=== PATIENT | female | born 2000 | race Caucasian/White ===

== ENCOUNTER 2021-02-03 09:04 | Emergency (ER) | payer BC, OTHER ==
[2021-02-03] MEDS ORDERED: Bacitracin Oint 1 GM U/D Packet TOP ONE (09:31)
--- NOTE | 2021-02-03 09:36 | EDM.PDOC ---
ED HPI GENERAL MEDICAL PROBLEM - General Chief Complaint: Bite:Animal, Insect Stated Complaint: [id number] DOG BITE Time Seen by Provider: 02/03/21 09:20 Source of Information: Reports: Patient History Limitations: Reports: No Limitations - History of Present Illness INITIAL COMMENTS - FREE TEXT/NARRATIVE: This 20 yo female patient reports to the ED with a dog bite to her right hand. The patient reports her dogs got into a fight today and bit her hand during the incident. The patient has a laceration between her thumb and index finger and between her ring and little finger. The patient reports 1 of the dogs is fully vaccinated, but the other is not at this time. Onset: Today Duration: Minutes: Location: Reports: Upper Extremity, Right Quality: Reports: Ache Severity: Moderate Improves with: Reports: Rest Worsens with: Reports: Movement Context: Reports: Other Associated Symptoms: Reports: No Other Symptoms Right Hand Pain Score (Numeric/FACES): 9 - Related Data Allergies Allergy/AdvReac Type Severity Reaction Status Date / Time No Known Allergies Allergy Verified 02/03/21 09:15 Home Meds: Home Meds . [No Known Home Meds] 02/03/21 [History] Past Medical History Respiratory History: Reports: Asthma Gastrointestinal History: Reports: Other (See Below) Other Gastrointestinal History: Lactose intolerant Social & Family History - Tobacco Use Tobacco Use Status *Q: Never Tobacco User Second Hand Smoke Exposure: No - Caffeine Use Caffeine Use: Reports: Coffee, Energy Drinks, Soda, Tea - Recreational Drug Use Recreational Drug Use: No ED ROS GENERAL - Review of Systems Review Of Systems: Comprehensive ROS is negative, except as noted in HPI. ED EXAM, ANIMAL BITE - Physical Exam Exam: See Below Exam Limited By: No Limitations General Appearance: Alert, WD/WN, Mild Distress Eye Exam: Bilateral Eye: EOMI, Normal Inspection, PERRL Ears: Normal External Exam, Normal Canal, Hearing Grossly Normal, Normal TMs Nose: Normal Inspection, Normal Mucosa, No Blood Throat/Mouth: Normal Inspection, Normal Lips, Normal Teeth, Normal Gums, Normal Oropharynx, Normal Voice, No Airway Compromise Head: Atraumatic, Normocephalic Neck: Normal Inspection, Supple, Non-Tender, Full Range of Motion Respiratory/Chest: No Respiratory Distress, Lungs Clear, Normal Breath Sounds, No Accessory Muscle Use, Chest Non-Tender Cardiovascular: Normal Peripheral Pulses, Regular Rate, Rhythm, No Edema, No Gal lop, No JVD, No Murmur, No Rub GI/Abdominal: Normal Bowel Sounds, Soft, Non-Tender, No Organomegaly, No Distention, No Abnormal Bruit, No Mass (Female) Exam: Deferred Rectal (Female) Exam: Deferred Back Exam: Normal Inspection, Full Range of Motion, NT Extremities: Arm Pain (right hand pain. Puncture wounds between her 1st and 2nd fingers and between 4th and 5th fingers with no profuse bleeding. ) Neurological: Alert, Oriented, CN II-XII Intact, Normal Cognition, Normal Gait, Normal Reflexes, No Motor/Sensory Deficits Psychiatric: Normal Affect, Normal Mood Skin Exam: Other (See above) Lymphatic: No Adenopathy Course - Vital Signs Last Recorded V/S: Last Vital Signs Temp 100.9 F H 02/03/21 09:15 Pulse 98 02/03/21 09:15 Resp 20 02/03/21 09:15 BP 129/85 02/03/21 09:33 Pulse Ox 97 02/03/21 09:15 - Orders/Labs/Meds Meds: Medications Discontinued Medications Generic Name Dose Route Start Last Admin Trade Name Freq PRN Reason Stop Dose Admin Bacitracin 1 dose 02/03/21 09:31 Bacitracin Oint 1 Gm U/D Packet TOP 02/03/21 09:32 ONETIME ONE Departure - Departure Time of Disposition: 09:32 Disposition: Home, Self-Care 01 Condition: Fair Clinical Impression: Dog bite of right hand Qualifiers: Encounter type: initial encounter Qualified Code(s): S61.451A - Open bite of right hand, initial encounter - Discharge Information *PRESCRIPTION DRUG MONITORING PROGRAM REVIEWED*: Not Applicable *COPY OF PRESCRIPTION DRUG MONITORING REPORT IN PATIENT JAMES: Not Applicable Instructions: Animal Bite, Adult, [id number] Forms: ED Department Discharge Care Plan Goals: The patient was advised of the examination results during the visit. The patients wound was dressed with an antibiotic ointment and dressed with a sterile dressing during the visit. The patient was discharged with a script for Augmentin (500/125) #20 to take 1 by mouth 2 times per day for 10 days. The patient was advised to quarantine her dog over the next week to watch for abnormal behavior. If the patient has any additional symptoms or concerns, the patient should either return to the emergency department or visit her primary care facility. Sepsis Event Note (ED) - Evaluation Sepsis Screening Result: No Definite Risk - Focused Exam Vital Signs: Vital Signs Temp Pulse Resp BP Pulse Ox 02/03/21 09:33 129/85 02/03/21 09:15 100.9 F H 98 20 152/98 H 97
== END 2021-02-03 09:46 | disposition home or self-care (01) ==
LOC: DL.ED 09:04
DX: S61.451A Open bite of right hand, initial encounter (principal); J45.909 Unspecified asthma, uncomplicated; W54.0XXA Bitten by dog, initial encounter
CPT/HCPCS: 99283

== ENCOUNTER 2021-02-04 18:34 | Emergency (ER) | payer BC ==
[2021-02-04] MEDS ORDERED: Acetaminophen 325 MG Tab PO ONE (19:13)
[2021-02-04] MEDS ORDERED: Sodium Chloride 0.9% 1,000 ML IV ONE (19:13)
[2021-02-04 19:31] LABS: ANION GAP 16.9 mEq/L (7-13); CHLORIDE,CL 101 mmol/L (98-107); SODIUM,NA 141 mmol/L (136-145)
--- NOTE | 2021-02-04 20:34 | EDM.PDOC ---
ED HPI GENERAL MEDICAL PROBLEM - General Chief Complaint: Wound Recheck Stated Complaint: DOG BITE GETTING WORSE Right Hand Pain Score (Numeric/FACES): 9 - Related Data Allergies Allergy/AdvReac Type Severity Reaction Status Date / Time cat dander Allergy Itching Verified 02/04/21 18:53 dog dander Allergy Itching Verified 02/04/21 18:53 Home Meds: Home Meds Ibuprofen 02/04/21 [History] Past Medical History Respiratory History: Reports: Asthma Gastrointestinal History: Reports: Other (See Below) Other Gastrointestinal History: Lactose intolerant Social & Family History - Caffeine Use Caffeine Use: Reports: Energy Drinks - Recreational Drug Use Recreational Drug Use: No Course - Vital Signs Last Recorded V/S: Last Vital Signs Temp 101.2 F H 02/04/21 18:57 Pulse 97 02/04/21 20:07 Resp 18 02/04/21 19:30 BP 111/75 02/04/21 20:07 Pulse Ox 99 02/04/21 20:07 - Orders/Labs/Meds Orders: Active Orders 24 hr Category Date Time Status Hand Comp Min 3V Rt [CR] Urgent Exams 02/04/21 20:19 Ordered Labs: Laboratory Tests 02/04/21 02/04/21 02/04/21 Range/Units 19:05 19:05 19:05 WBC 15.4 H (5.0-10.0) 10^3/uL RBC 5.13 (4.2-5.4) 10^6/uL Hgb 15.3 (12.0-16.0) g/dL Hct 44.1 (37.0-47.0) % MCV 86.0 (80-100) fL MCH 29.8 (27.0-34.0) pg MCHC 34.7 (33.0-35.0) g/dL Plt Count 314 (150-450) 10^3/uL Neut % (Auto) 77.4 H (42.2-75.2) % Lymph % (Auto) 11.4 L (20.5-50.1) % [place] % (Auto) 6.6 (2-8) % Eos % (Auto) 4.4 H (1.0-3.0) % Baso % (Auto) 0.2 (0.0-1.0) % Sodium 141 (136-145) mmol/L Potassium 3.9 (3.5-5.1) mmol/L Chloride 101 (98-107) mmol/L Carbon Dioxide 27 (21-32) mmol/L Anion Gap 16.9 H (7-13) mEq/L BUN 11 (7-18) mg/dL Creatinine 0.82 (0.55-1.02) mg/dL Est Cr Clr Drug Dosing 95.29 mL/min Estimated GFR (MDRD) > 60 BUN/Creatinine Ratio 13.4 (No establ ref range) Glucose 103 H (70-99) mg/dL Lactic Acid 0.8 (0.4-2.0) mmol/L Calcium 9.3 (8.5-10.1) mg/dL Total Bilirubin 0.5 (0.2-1.0) mg/dL AST 21 (15-37) U/L ALT 26 (14-59) U/L Alkaline Phosphatase 99 (46-116) U/L Total Protein 8.7 H (6.4-8.2) g/dL Albumin 4.6 (3.4-5.0) g/dL Globulin 4.1 Albumin/Globulin Ratio 1.1 HCG, Qual Negative SARS-CoV-2 RNA (LIBBY) (NEGATIVE) 02/04/21 Range/Units 19:12 WBC (5.0-10.0) 10^3/uL RBC (4.2-5.4) 10^6/uL Hgb (12.0-16.0) g/dL Hct (37.0-47.0) % MCV (80-100) fL MCH (27.0-34.0) pg MCHC (33.0-35.0) g/dL Plt Count (150-450) 10^3/uL Neut % (Auto) (42.2-75.2) % Lymph % (Auto) (20.5-50.1) % [place] % (Auto) (2-8) % Eos % (Auto) (1.0-3.0) % Baso % (Auto) (0.0-1.0) % Sodium (136-145) mmol/L Potassium (3.5-5.1) mmol/L Chloride (98-107) mmol/L Carbon Dioxide (21-32) mmol/L Anion Gap (7-13) mEq/L BUN (7-18) mg/dL Creatinine (0.55-1.02) mg/dL Est Cr Clr Drug Dosing mL/min Estimated GFR (MDRD) BUN/Creatinine Ratio (No establ ref range) Glucose (70-99) mg/dL Lactic Acid (0.4-2.0) mmol/L Calcium (8.5-10.1) mg/dL Total Bilirubin (0.2-1.0) mg/dL AST (15-37) U/L ALT (14-59) U/L Alkaline Phosphatase (46-116) U/L Total Protein (6.4-8.2) g/dL Albumin (3.4-5.0) g/dL Globulin Albumin/Globulin Ratio HCG, Qual SARS-CoV-2 RNA (LIBBY) Negative (NEGATIVE) Meds: Medications Discontinued Medications Generic Name Dose Route Start Last Admin Trade Name Freq PRN Reason Stop Dose Admin Acetaminophen 650 mg 02/04/21 19:13 02/04/21 19:21 Acetaminophen 325 Mg Tab PO 02/04/21 19:14 650 mg NOW ONE Administration Sodium Chloride 1,000 mls @ 999 mls/hr 02/04/21 19:13 02/04/21 19:23 Normal Saline IV 02/04/21 20:13 999 mls/hr .BOLUS ONE Administration Departure - Discharge Information Sepsis Event Note (ED) - Focused Exam Vital Signs: Vital Signs Temp Pulse Resp BP Pulse Ox 02/04/21 20:07 97 111/75 99 02/04/21 19:45 102 H 112/78 97 02/04/21 19:30 108 H 18 129/87 97 02/04/21 19:15 110 H 18 111/84 98 02/04/21 18:57 101.2 F H 118 H 20 137/85 97
--- NOTE | 2021-02-04 20:41 | EDM.PDOC ---
ED HPI GENERAL MEDICAL PROBLEM - General Chief Complaint: Wound Recheck Stated Complaint: DOG BITE GETTING WORSE Time Seen by Provider: 02/04/21 19:45 Source of Information: Reports: Patient History Limitations: Reports: No Limitations - History of Present Illness INITIAL COMMENTS - FREE TEXT/NARRATIVE: ED with c/o dog bite to right hand yesterday. Seen in ED started on antibiotic today, has had one dose Augmentin. has had hand wrapped today. Photo of hand this am compared to tonight increased redness and swelling. Pain worse with movement, fever tonight, also sore throat for one week getting better, some sinus congestion Location: Reports: Upper Extremity, Right Quality: Reports: Ache, Burning Severity: Moderate Worsens with: Reports: Movement Right Hand Pain Score (Numeric/FACES): 9 - Related Data Allergies Allergy/AdvReac Type Severity Reaction Status Date / Time cat dander Allergy Itching Verified 02/04/21 18:53 dog dander Allergy Itching Verified 02/04/21 18:53 Home Meds: Home Meds Ibuprofen 02/04/21 [History] Past Medical History Respiratory History: Reports: Asthma Gastrointestinal History: Reports: Other (See Below) Other Gastrointestinal History: Lactose intolerant Social & Family History - Caffeine Use Caffeine Use: Reports: Energy Drinks - Recreational Drug Use Recreational Drug Use: No ED ROS GENERAL - Review of Systems Review Of Systems: Comprehensive ROS is negative, except as noted in HPI. ED EXAM, SKIN/RASH Exam: See Below Exam Limited By: No Limitations General Appearance: Alert, Mild Distress Ears: Normal External Exam, Hearing Grossly Normal Nose: Normal Inspection Throat/Mouth: Normal Inspection Head: Atraumatic, Normocephalic Neck: Normal Inspection Respiratory/Chest: No Respiratory Distress, Normal Breath Sounds Cardiovascular: Normal Peripheral Pulses, Tachycardia GI/Abdominal: Soft, Non-Tender Back Exam: Full Range of Motion Extremities: Limited Range of Motion, Other (swelling right hand greater distal 4th and 5th metacarpal puncture wounds sweb between thumb and index, dime size redness, pucnture between web 4th and 5th fingers dorsal mild swelling fingers moderate seling distal hand. ) Course - Vital Signs Last Recorded V/S: Last Vital Signs Temp 99.1 F 02/04/21 21:35 Pulse 90 02/04/21 21:35 Resp 14 02/04/21 21:35 BP 106/85 02/04/21 21:35 Pulse Ox 97 02/04/21 21:35 - Orders/Labs/Meds Labs: Laboratory Tests 02/04/21 02/04/21 02/04/21 Range/Units 19:05 19:05 19:05 WBC 15.4 H (5.0-10.0) 10^3/uL RBC 5.13 (4.2-5.4) 10^6/uL Hgb 15.3 (12.0-16.0) g/dL Hct 44.1 (37.0-47.0) % MCV 86.0 (80-100) fL MCH 29.8 (27.0-34.0) pg MCHC 34.7 (33.0-35.0) g/dL Plt Count 314 (150-450) 10^3/uL Neut % (Auto) 77.4 H (42.2-75.2) % Lymph % (Auto) 11.4 L (20.5-50.1) % [place] % (Auto) 6.6 (2-8) % Eos % (Auto) 4.4 H (1.0-3.0) % Baso % (Auto) 0.2 (0.0-1.0) % Sodium 141 (136-145) mmol/L Potassium 3.9 (3.5-5.1) mmol/L Chloride 101 (98-107) mmol/L Carbon Dioxide 27 (21-32) mmol/L Anion Gap 16.9 H (7-13) mEq/L BUN 11 (7-18) mg/dL Creatinine 0.82 (0.55-1.02) mg/dL Est Cr Clr Drug Dosing 95.29 mL/min Estimated GFR (MDRD) > 60 BUN/Creatinine Ratio 13.4 (No establ ref range) Glucose 103 H (70-99) mg/dL Lactic Acid 0.8 (0.4-2.0) mmol/L Calcium 9.3 (8.5-10.1) mg/dL Total Bilirubin 0.5 (0.2-1.0) mg/dL AST 21 (15-37) U/L ALT 26 (14-59) U/L Alkaline Phosphatase 99 (46-116) U/L Total Protein 8.7 H (6.4-8.2) g/dL Albumin 4.6 (3.4-5.0) g/dL Globulin 4.1 Albumin/Globulin Ratio 1.1 HCG, Qual Negative SARS-CoV-2 RNA (LIBBY) (NEGATIVE) 02/04/21 Range/Units 19:12 WBC (5.0-10.0) 10^3/uL RBC (4.2-5.4) 10^6/uL Hgb (12.0-16.0) g/dL Hct (37.0-47.0) % MCV (80-100) fL MCH (27.0-34.0) pg MCHC (33.0-35.0) g/dL Plt Count (150-450) 10^3/uL Neut % (Auto) (42.2-75.2) % Lymph % (Auto) (20.5-50.1) % [place] % (Auto) (2-8) % Eos % (Auto) (1.0-3.0) % Baso % (Auto) (0.0-1.0) % Sodium (136-145) mmol/L Potassium (3.5-5.1) mmol/L Chloride (98-107) mmol/L Carbon Dioxide (21-32) mmol/L Anion Gap (7-13) mEq/L BUN (7-18) mg/dL Creatinine (0.55-1.02) mg/dL Est Cr Clr Drug Dosing mL/min Estimated GFR (MDRD) BUN/Creatinine Ratio (No establ ref range) Glucose (70-99) mg/dL Lactic Acid (0.4-2.0) mmol/L Calcium (8.5-10.1) mg/dL Total Bilirubin (0.2-1.0) mg/dL AST (15-37) U/L ALT (14-59) U/L Alkaline Phosphatase (46-116) U/L Total Protein (6.4-8.2) g/dL Albumin (3.4-5.0) g/dL Globulin Albumin/Globulin Ratio HCG, Qual SARS-CoV-2 RNA (LIBBY) Negative (NEGATIVE) Meds: Medications Discontinued Medications Generic Name Dose Route Start Last Admin Trade Name Freq PRN Reason Stop Dose Admin Acetaminophen 650 mg 02/04/21 19:13 02/04/21 19:21 Acetaminophen 325 Mg Tab PO 02/04/21 19:14 650 mg NOW ONE Administration Bacitracin 1 dose 02/04/21 20:50 Bacitracin Oint 1 Gm U/D Packet TOP 02/04/21 20:51 ONETIME ONE Sodium Chloride 1,000 mls @ 999 mls/hr 02/04/21 19:13 02/04/21 19:23 Normal Saline IV 02/04/21 20:13 999 mls/hr .BOLUS ONE Administration Gentamicin Sulfate 120 mg/ 103 mls @ 200 mls/hr 02/04/21 20:22 02/04/21 20:39 Sodium Chloride IV 02/04/21 20:54 200 mls/hr ONETIME ONE Administration Ketorolac Tromethamine 30 mg 02/04/21 20:50 02/04/21 20:58 Ketorolac 30 Mg/Ml Sdv IVPUSH 02/04/21 20:51 30 mg ONETIME ONE Administration Departure - Departure Time of Disposition: 21:13 Disposition: Home, Self-Care 01 Condition: Good Clinical Impression: Cellulitis Qualifiers: Site of cellulitis: extremity Site of cellulitis of extremity: upper extremity Laterality: right Qualified Code(s): L03.113 - Cellulitis of right upper limb Dog bite of right hand Qualifiers: Encounter type: initial encounter Qualified Code(s): S61.451A - Open bite of right hand, initial encounter - Discharge Information *PRESCRIPTION DRUG MONITORING PROGRAM REVIEWED*: No *COPY OF PRESCRIPTION DRUG MONITORING REPORT IN PATIENT JAMES: No Instructions: Animal Bite, Adult, [id number], Cellulitis, Adult, [id number] Referrals: PCP,None [Primary Care Provider] - Forms: ED Department Discharge Additional Instructions: elevate, cover wounds with light dressing alternate tylenol 650mg and ibuprofen 600mg every 4 hours as needed for fever/discomfort continue augmentin recheck wound in clinic Tuesday, Sooner if increased pain and swelling and redness of hand extending beyond gauri in am.
[2021-02-04] MEDS ORDERED: Ketorolac 30 MG/ML SDV IVPUSH ONE (20:50)
[2021-02-04] MEDS ORDERED: Bacitracin Oint 1 GM U/D Packet TOP ONE (20:50)
--- NOTE | 2021-02-04 21:23 | CR ---
PROCEDURE INFORMATION: Exam: XR Right Hand Exam date and time: 02/04/2021 8:23 PM Age: 20 years old Clinical indication: Injury or trauma; Other: Dog bite; Hand; Right; Additional info: Dog bite, swelling TECHNIQUE: Imaging protocol: XR Right hand. Views: 3 or more views. COMPARISON: No relevant prior studies available. FINDINGS: Bones/joints: There is normal osseous mineralization. There are no suspicious lytic or osteosclerotic lesions. Normal alignment. No fracture deformity. No callus formation. No periarticular osteophytes or erosions. No loose bodies. Soft tissues: No soft tissue calcifications, gas or foreign body. IMPRESSION: Normal hand radiography.
== END 2021-02-04 21:37 | disposition home or self-care (01) ==
LOC: DL.ED 18:34
DX: S61.451A Open bite of right hand, initial encounter (principal); L03.113 Cellulitis of right upper limb; Z20.822 Contact with and (suspected) exposure to COVID-19; Z91.09 Other allergy status, other than to drugs and biological substances; W54.0XXA Bitten by dog, initial encounter
CPT/HCPCS: 36415; 73130; 80053; 83605; 84703; 85025; 87635; 96365; 96375; 99283; A9270; J1580; J1885; J7030; U0002

== ENCOUNTER 2024-10-18 17:44 | Inpatient (IN) | payer BC ==
[2024-10-18] MEDS ORDERED: Sodium Chloride 0.9% 10 ML Syringe FLUSH PRN (18:22)
[2024-10-18] MEDS ORDERED: Carboprost Tromethamine 250 MCG/1 ML Amp IM PRN (18:22)
[2024-10-18] MEDS ORDERED: Oxytocin/Lactated Ringers 30 UNIT/500 ML BAG IV SCH (18:30)
[2024-10-18 18:59] LABS: PLATELET COUNT,PLT 210.0 10^3/uL (150-450); RED BLOOD CELL COUNT 3.55 10^6/uL (4.2-5.4); WHITE BLOOD CELL COUNT,WBC 13.0 10^3/uL (5.0-10.0)
[2024-10-18] MEDS: Lactated Ringers 1,000 ML IV SCH (19:35)
[2024-10-18] MEDS: Oxytocin/Normal Saline 30 UNIT/500 ML BAG IV SCH (19:36)
[2024-10-19] MEDS: Misoprostol 50 MCG (1/2 of 100 MCG) Tab ONE (08:03)
[2024-10-19] MEDS: Misoprostol 50 MCG (1/2 of 100 MCG) Tab PO ONE (08:07)
[2024-10-19] MEDS ORDERED: Misoprostol 50 MCG (1/2 of 100 MCG) Tab VAG PRN (11:58)
[2024-10-19] MEDS ORDERED: Nalbuphine HCl 10 MG/ 1ML Amp IM PRN (20:20)
[2024-10-19] MEDS: Nalbuphine HCl 10 MG/ 1ML Amp IM ONE (21:30)
[2024-10-19] MEDS: fentaNYL 100 MCG/2 ML SDV IVPUSH PRN (23:17)
[2024-10-20] MEDS: Lactated Ringers 1,000 ML IV SCH (08:45)
[2024-10-20] MEDS ORDERED: Oxytocin 10 Units/1 ML SDV IM PRN (10:25)
[2024-10-20] MEDS ORDERED: Sodium Chloride 0.9% 10 ML Syringe FLUSH PRN (10:25)
[2024-10-20] MEDS ORDERED: Carboprost Tromethamine 250 MCG/1 ML Amp IM PRN ×2 (10:25→12:25)
[2024-10-20] MEDS ORDERED: Oxytocin/Lactated Ringers 30 UNIT/500 ML BAG IV SCH (10:30)
[2024-10-20] MEDS ORDERED: Lactated Ringers 1,000 ML IV SCH ×2 (10:30)
[2024-10-20] MEDS ORDERED: fentaNYL 100 MCG/2 ML SDV ONE (10:51)
[2024-10-20 11:03] LABS: PLATELET COUNT,PLT 207 10^3/uL (150-450); RED BLOOD CELL COUNT 3.70 10^6/uL (4.2-5.4); WHITE BLOOD CELL COUNT,WBC 16.8 10^3/uL (5.0-10.0)
[2024-10-20] MEDS ORDERED: Oxytocin/Normal Saline 30 UNIT/500 ML BAG ONE (11:04)
[2024-10-20 11:10] LABS: BASOPHILS PERCENT AUTO 0.2 % (0.0-1.0); EOSINOPHILS PERCENT AUTO 2.1 % (1.0-3.0); LYMPHOCYTES PERCENT AUTO 6.7 % (20.5-50.1); MONOCYTES PERCENT AUTO 5.9 % (2-8); NEUTROPHILS PERCENT AUTO 85.1 % (42.2-75.2)
[2024-10-20 11:42] LABS: EOSINOPHILS PERCENT MAN 1 % (1-3); LYMPHOCYTES PERCENT MAN 7 % (20-50); MONOCYTES PERCENT MAN 5 % (2-8); SEG NEUTROPHILS PERCENT MAN 87 % (42-75)
[2024-10-20] MEDS ORDERED: diphenhydrAMINE 50 MG/ML SDV ONE (11:45)
[2024-10-20] MEDS ORDERED: ePHEDrine 50 MG/ML SDV IVPUSH PRN (12:25)
[2024-10-20] MEDS ORDERED: Ondansetron 4 MG/2 ML SDV IVPUSH PRN (12:25)
[2024-10-20] MEDS ORDERED: diphenhydrAMINE 50 MG/ML SDV IVPUSH PRN (12:25)
[2024-10-20] MEDS: Acetaminophen/oxyCODONE 325-5 MG Tab PO PRN ×2 (15:48)
[2024-10-20] MEDS ORDERED: dexmedeTOMIDine HCl 200 MCG/2 ML SDV ONE (17:11)
[2024-10-20] MEDS: Ketorolac 30 MG/ML SDV IVPUSH SCH (18:18)
[2024-10-20] MEDS: Sodium Chloride 0.9% 10 ML Syringe FLUSH SCH (20:25)
[2024-10-20] MEDS: Lactated Ringers 1,000 ML IV ONE (20:50)
[2024-10-21 06:45] LABS: PLATELET COUNT,PLT 196.0 10^3/uL (150-450); RED BLOOD CELL COUNT 3.22 10^6/uL (4.2-5.4); WHITE BLOOD CELL COUNT,WBC 21.0 10^3/uL (5.0-10.0)
[2024-10-21] MEDS: Prenatal Multivitamin with Calcium/Folic Acid/Iron Tab PO SCH (09:20)
[2024-10-21] MEDS: Ondansetron 4 MG/2 ML SDV IVPUSH PRN (12:19)
[2024-10-22] MEDS: Ondansetron 4 MG Tab.DIS PO PRN (22:00)
[2024-10-23] MEDS ORDERED: Dexamethasone 4 MG/ML SDV IV ONE (14:44)
[2024-10-23] MEDS ORDERED: Ondansetron 4 MG/2 ML SDV IV ONE (14:44)
[2024-10-23] MEDS ORDERED: Oxytocin/Normal Saline 30 UNIT/500 ML BAG IV ONE (14:44)
[2024-10-23] MEDS ORDERED: Lactated Ringers 1,000 ML IV ONE (14:44)
[2024-10-23] MEDS ORDERED: Ropivacaine 100 ML EPIDUR ONE (14:44)
[2024-10-23] MEDS ORDERED: Ketorolac 30 MG/ML SDV IVPUSH ONE (14:44)
[2024-10-23] MEDS ORDERED: dexmedeTOMIDine HCl 200 MCG/2 ML SDV IV ONE (14:44)
[2024-10-23] MEDS ORDERED: fentaNYL 100 MCG/2 ML SDV EPIDUR ONE (14:44)
== END 2024-10-23 14:45 | disposition home or self-care (01) | DRG 540 ==
LOC: DL.OBCHECK 17:44 → DL.OB 18:17 → OBSVTOIN 10-20 11:49
PROVIDERS: ADMIT Family Medicine; ATTEND Family Medicine
PROC: 30233S1 Transfusion of Nonautologous Globulin into Peripheral Vein, Percutaneous Approach (ICD-10-PCS; principal; 2024-10-20)
PROC: 10D00Z1 Extraction of Products of Conception, Low, Open Approach (ICD-10-PCS; principal; 2024-10-20)
DX: O99.02 Anemia complicating childbirth (principal); Z3A.39 39 weeks gestation of pregnancy; Z37.0 Single live birth; O42.92 Full-term premature rupture of membranes, unspecified as to length of time between rupture and onset of labor; Z88.8 Allergy status to other drugs, medicaments and biological substances; Z98.890 Other specified postprocedural states; F17.200 Nicotine dependence, unspecified, uncomplicated; Z79.899 Other long term (current) drug therapy; O62.2 Other uterine inertia; F12.90 Cannabis use, unspecified, uncomplicated; Z67.91 Unspecified blood type, Rh negative
CPT/HCPCS: 01967; 01968; 36415; 64488; 85025; 85027; 85461; 86850; 86900; 86901; 86920; 86922; 94010; A9270-GY; J1100; J1885; J2003; J2405; J2590; J2791; J2795; J3010; J7120